=== PATIENT | male | born 1990 | race Caucasian/White ===

== ENCOUNTER 2023-11-26 13:34 | Emergency (ER) | payer OTHER ==
[~2023-11-26] VITALS: Ht 167.6 cm; Wt 68.0 kg
[2023-11-26] MEDS: TETANUS/DIPHTHERIA TOXOID [ADULT] 0.5 ML VIAL IM ONE (14:43)
[2023-11-26] MEDS: IBUPROFEN 800 MG TAB PO ONE (14:46)
[2023-11-26 15:50] VITALS: BP 142/86; PULSE 104; RESP 18; O2SAT 99
== END 2023-11-26 17:13 | disposition left against medical advice (07) ==
LOC: EEVIPCON 13:34 → EDH 13:34
DX: S42.91XA Fracture of right shoulder girdle, part unspecified, initial encounter for closed fracture (principal); S42.92XA Fracture of left shoulder girdle, part unspecified, initial encounter for closed fracture; S02.2XXA Fracture of nasal bones, initial encounter for closed fracture; S05.41XA Penetrating wound of orbit with or without foreign body, right eye, initial encounter; W18.39XA Other fall on same level, initial encounter; Y93.89 Activity, other specified; Y92.89 Other specified places as the place of occurrence of the external cause; Y99.8 Other external cause status
CPT/HCPCS: 70200; 71101; 73000; 90471; 90714